=== PATIENT | male | born 1990 | race African-American/Black ===

== ENCOUNTER 2018-09-03 02:33 | Emergency (ER) | payer SELFPAY ==
[~2018-09-03] VITALS: Ht 175.3 cm; Wt 86.4 kg
[2018-09-03 03:27] LABS: BASOPHILS % (AUTO) 1.1 % (0.0-2.0); EOSINOPHILS % (AUTO) 3.3 % (1.0-6.0); HEMATOCRIT 44.1 % (41-53); HEMOGLOBIN 14.9 g/dL (13.5-17.5); LYMPHOCYTES # (AUTO) 2.7 K/uL (1.0-4.8); LYMPHOCYTES % (AUTO) 34.1 % (22.0-44.0); MEAN CORPUSCULAR HEMOGLOBIN 30.2 pg (26.0-34.0); MEAN CORPUSCULAR HGB CONC 33.8 G/dL (31.0-37.0); MEAN CORPUSCULAR VOLUME 89 fL (80-100); MONOCYTES # (AUTO) 0.8 K/uL (0.1-1.0); MONOCYTES % (AUTO) 10.3 % (2.0-9.0); NEUTROPHILS % (AUTO) 51.2 % (40.0-70.0); PLATELET COUNT (AUTO) 211 K/uL (150-450); RED BLOOD CELL COUNT(AUTO) 4.95 MIL/uL (4.50-5.90); RED CELL DISTRIBUTION WIDTH 14.5 % (11.5-14.5)
[2018-09-03 03:41] LABS: ANION GAP 5 mmol/L (8-16); CALCIUM, TOTAL 9.6 mg/dL (8.8-10.5); CARBON DIOXIDE 31 mmol/L (22-29); CHLORIDE 103 mmol/L (98-107); CREATININE 1.31 mg/dL (0.60-1.30); GLOMERULAR FILTR. RATE CALC > 60 mL/min (>60); GLUCOSE,RANDOM 90 mg/dL (70-110); POTASSIUM 3.7 mmol/L (3.5-5.1); SODIUM SERUM 139 mmol/L (136-145); UREA NITROGEN, BLOOD 23 mg/dL (7-18)
[2018-09-03 03:47] LABS: ALANINE AMINOTRANSFERASE 28 U/L (12-78); ALBUMIN 4.4 g/dL (3.4-5.0); ALKALINE PHOSPHATASE 92 U/L (46-116); ASPARTATE AMINOTRANSFERASE 24 U/L (15-37); BILIRUBIN,TOTAL 0.3 mg/dL (0.1-1.0); LIPASE 120 U/L (73-393); TOTAL PROTEIN, SERUM 7.9 g/dL (6.4-8.2)
[2018-09-03 04:25] LABS: APPEARANCE,URINE CLOUDY (CLEAR); BILIRUBIN,URINE NEGATIVE (NEGATIVE); GLUCOSE, URINE (UA) NEGATIVE (NEGATIVE); KETONES,URINE NEGATIVE (NEGATIVE); LEUKOCYTE ESTERASE ,URINE NEGATIVE (NEGATIVE); NITRATE,URINE NEGATIVE (NEGATIVE); OCCULT BLOOD,URINE NEGATIVE (NEGATIVE); PH,URINE 7.5 (5.0-8.0); PROTEIN,URINE NEGATIVE (NEGATIVE); UROBILINOGEN,URINE 0.2 mg/dL (<=1.0)
[2018-09-03 04:30] VITALS: BP 113/64
== END 2018-09-03 04:49 | disposition home or self-care (01) ==
LOC: EMS 02:35
DX: R14.0 Abdominal distension (gaseous) (principal); F41.9 Anxiety disorder, unspecified

== ENCOUNTER 2019-01-11 10:17 | Emergency (ER) | payer SELFPAY ==
[~2019-01-11] VITALS: Ht 177.8 cm; Wt 86.4 kg
[2019-01-11 10:28] VITALS: BP 138/71
== END 2019-01-11 11:26 | disposition home or self-care (01) ==
LOC: EMS 10:20
DX: R10.9 Unspecified abdominal pain (principal); Z53.21 Procedure and treatment not carried out due to patient leaving prior to being seen by health care provider

== ENCOUNTER 2019-01-15 10:27 | Emergency (ER) | payer SELFPAY ==
[~2019-01-15] VITALS: Ht 177.8 cm; Wt 88.6 kg
[2019-01-15 11:37] VITALS: BP 138/73
== END 2019-01-15 11:39 | disposition home or self-care (01) ==
LOC: EMS 10:29
DX: R10.30 Lower abdominal pain, unspecified (principal); F17.210 Nicotine dependence, cigarettes, uncomplicated

== ENCOUNTER 2019-05-30 14:43 | Emergency (ER) | payer SELFPAY ==
[~2019-05-30] VITALS: Ht 175.3 cm; Wt 86.4 kg
[2019-05-30 15:01] VITALS: BP 122/66
== END 2019-05-30 16:18 | disposition left against medical advice (07) ==
LOC: EMS 14:43
DX: R51 Headache (principal); Z53.21 Procedure and treatment not carried out due to patient leaving prior to being seen by health care provider

== ENCOUNTER 2021-07-22 19:07 | Emergency (ER) | payer SELFPAY ==
[~2021-07-22] VITALS: Ht 177.8 cm; Wt 104.5 kg
[2021-07-22 19:21] VITALS: BP 138/70
== END 2021-07-22 21:00 | disposition left against medical advice (07) ==
LOC: EMS 19:07
DX: Z53.21 Procedure and treatment not carried out due to patient leaving prior to being seen by health care provider (principal)